=== PATIENT | female | born 1955 | race Caucasian/White ===

== ENCOUNTER 2019-03-03 05:55 | Day surgery (SDC) | payer OTHER ==
[2019-03-02 13:54] LABS: BASOPHILS # (AUTO) 0.1 X10'3 (0-0.2); BASOPHILS % (AUTO) 0.9 % (0-1); EOSINOPHILS # (AUTO) 0.4 X10'3 (0-0.9); EOSINOPHILS % (AUTO) 4.7 % (0-6); HEMATOCRIT 44.6 % (35.0-45.0); HEMOGLOBIN 14.8 g/dl (12.0-16.0); LYMPHOCYTES # (AUTO) 1.8 X10'3 (1.1-4.8); LYMPHOCYTES % (AUTO) 23.1 % (21-51); MEAN CORPUSCULAR HEMOGLOBIN 28.6 PG (27.0-31.0); MEAN CORPUSCULAR HGB CONC 33.3 g/dL (33.0-36.5); MEAN CORPUSCULAR VOLUME 85.8 FL (78-98); MEAN PLATELET VOLUME 8.8 FL (7.4-10.4); MONOCYTES # (AUTO) 0.8 X10'3 (0-0.9); MONOCYTES % (AUTO) 9.9 % (2-12); NEUTROPHILS # (AUTO) 4.8 X10'3 (1.8-7.7); NEUTROPHILS % (AUTO) 61.4 % (42-75); PLATELET COUNT 311 X10'3 (140-440); RED CELL DISTRIBUTION WIDTH 14.5 % (11.5-14.5); WHITE BLOOD COUNT 7.8 X10'3 (4.5-11.0)
[2019-03-02 14:09] LABS: ALBUMIN 3.7 G/DL (3.4-5.0); ANION GAP 6 (8-16); BLOOD UREA NITROGEN 27 MG/DL (7-18); BUN/CREATININE RATIO 32.5 (6.6-38.0); CALCIUM 9.8 MG/DL (8.5-10.1); CHLORIDE 106 MMOL/L (99-107); CREATININE 0.83 MG/DL (0.40-0.90); GLUCOSE 83 MG/DL (70-104); SODIUM 140 MMOL/L (135-145); TOTAL CARBON DIOXIDE 28.1 MMOL/L (24-32); eGFR 69 ML/MIN
[2019-03-02 14:13] LABS: PARTIAL THROMBOPLASTIN TIME 34 SECONDS (22-32); PROTHROMBIN TIME 9.9 SECONDS (9.0-12.0)
[2019-03-03] VITALS (14 sets, daily range): BP systolic 95–162; BP diastolic 54–102
[~2019-03-03] VITALS: Ht 162.6 cm; Wt 67.4 kg
[2019-03-03] MEDS ORDERED: normal saline 1,000 ML IV SCH ×2 (06:15→09:52)
[2019-03-03] MEDS ORDERED: diphenhydrAMINE 25mg capsule PO PRN (06:15)
[2019-03-03] MEDS ORDERED: LORazepam 0.5 MG tablet PO PRN (06:15)
[2019-03-03] MEDS ORDERED: NAPR-1154 PO (06:18)
[2019-03-03] MEDS ORDERED: METO100T7 PO (06:18)
[2019-03-03] MEDS ORDERED: ASPI-1264 PO (06:18)
[2019-03-03] MEDS ORDERED: LIDOcaine/PRILOcaine 5gm cream TP ONE (06:25)
[2019-03-03] MEDS ORDERED: verapamil 2.5 mg/ml inj IV ONE (07:34)
[2019-03-03] MEDS ORDERED: nitroGLYCERIN-Tridil 50MG/D5W 250 ML IV ONE (07:34)
[2019-03-03] MEDS ORDERED: iohexol 350MG/ML 100ml bottle IV ONE (07:35)
[2019-03-03] MEDS ORDERED: iohexol 350 MG/ML 50ML vial IV ONE (07:35)
[2019-03-03] MEDS ORDERED: LIDOcaine 1% (10mg/ml)w/preservative injection 20ml MDV ONE (07:35)
[2019-03-03] MEDS ORDERED: fentaNYL/PF 50MCG/1 ML 2ML syringe ONE (07:35)
[2019-03-03] MEDS ORDERED: midazolam 2 mg/2 ml injection ONE (07:35)
[2019-03-03] MEDS ORDERED: heparin 1,000unit/ml 10ml vial 10 ML ONE (07:35)
== END 2019-03-03 15:45 | disposition home or self-care (01) ==
LOC: SSTAY O 05:55
PROVIDERS: ATTEND Internal Medicine Cardiovascular Disease
DX: I25.10 Atherosclerotic heart disease of native coronary artery without angina pectoris (principal); Z88.2 Allergy status to sulfonamides
CPT/HCPCS: 36415; 80048; 85025; 85610; 85730; 93005; 93458; 99152; 99153; A6257; J1644; J2001; J2250; J3010; J7030; Q0163; Q9967; A4620; C1769; J3490